=== PATIENT | female | born 1965 | race Hispanic/Latino ===

== ENCOUNTER 2017-10-12 16:38 | Inpatient (IN) | payer MEDICAID ==
[~2017-10-12] VITALS: Ht 160 cm; Wt 97.1 kg
[2017-10-12 17:27] LABS: BASOPHILS % (AUTO) 0.7 % (0.0-5.0); EOSINOPHILS % (AUTO) 3.5 % (0.0-8.0); HEMATOCRIT 40.1 % (36-48); LYMPHOCYTES % (AUTO) 33.3 % (21.0-51.0); MEAN CORPUSCULAR HEMOGLOBIN 28.7 pg (27.0-33.0); MEAN CORPUSCULAR HGB CONC 34.6 g/dL (32.0-36.0); MONOCYTES % (AUTO) 5.3 % (3.0-13.0); NEUTROPHILS % (AUTO) 57.2 % (40.0-77.0); NUCLEATED RED BLOOD CELLS 0.1 % (0.0-0.19); PLATELET COUNT (AUTO) 179 K/uL (130-400); RED BLOOD CELL COUNT(AUTO) 4.83 MIL/uL (4.00-5.50); RED CELL DISTRIBUTION WIDTH 14.1 % (11.0-15.5)
[2017-10-12 17:33] LABS: CARBON DIOXIDE 29 mmol/L (21-32); CHLORIDE 99 mmol/L (101-111); CREATININE 0.8 mg/dL (0.5-1.5); GLOMERULAR FILTR. RATE CALC 79 mL/min (>60); GLUCOSE,RANDOM 217 mg/dL (70-105); POTASSIUM 3.4 mmol/L (3.5-5.1); SODIUM SERUM 135 mmol/L (136-145); UREA NITROGEN, BLOOD 9 mg/dL (7-18)
[2017-10-12 17:44] LABS: CREATINE KINASE MB 0.7 ng/mL (0.5-3.6); CREATINE KINASE, TOTAL 158 U/L (21-232); MYOGLOBIN 36 ng/mL (10-92); TROPONIN I < 0.04 ng/mL (0.00-0.06)
[2017-10-12] MEDS ORDERED: INSU100I24 SQ (18:26)
[2017-10-12] MEDS ORDERED: NITR0.4T50 SL (18:26)
[2017-10-12] MEDS ORDERED: LEVO88TA7 PO (18:26)
[2017-10-12] MEDS ORDERED: ESCI10TA PO (18:26)
[2017-10-12] MEDS ORDERED: LOSA1TAB54 PO (18:26)
[2017-10-12 18:49] VITALS: BP 173/87
[2017-10-12 19:35] VITALS: BP 146/73
[2017-10-12 22:19] LABS: CREATINE KINASE MB 0.6 ng/mL (0.5-3.6); CREATINE KINASE, TOTAL 116 U/L (21-232); MYOGLOBIN 42 ng/mL (10-92); TROPONIN I < 0.04 ng/mL (0.00-0.06)
[2017-10-12] MEDS ORDERED: HYDRALAZINE HCL 20 MG/ML VIAL IV PRN (22:30)
[2017-10-12] MEDS: NITROGLYCERIN 1GM/1 INCH PACKET TD SCH (22:40)
[2017-10-12] MEDS: ACETAMINOPHEN 325 MG TAB PO PRN (22:42)
[2017-10-12 23:23] VITALS: BP 142/81
[2017-10-13] VITALS (13 sets, daily range): BP systolic 126–152; BP diastolic 63–89
[2017-10-13 02:04] LABS: CREATINE KINASE MB 0.5 ng/mL (0.5-3.6); CREATINE KINASE, TOTAL 116 U/L (21-232); MYOGLOBIN 36 ng/mL (10-92); THYROID STIMULATING HORMONE 13.57 uIU/mL (0.36-3.74); TROPONIN I < 0.04 ng/mL (0.00-0.06)
[2017-10-13] MEDS: INSULIN HUMULIN R 100 UNIT/ML 3ML SQ SCH ×4 (05:37→20:53)
[2017-10-13] MEDS: NITROGLYCERIN 1GM/1 INCH PACKET TD SCH ×3 (05:56→22:32)
[2017-10-13] MEDS: ACETAMINOPHEN 325 MG TAB PO PRN ×2 (07:37→20:56)
[2017-10-13] MEDS ORDERED: NITROGLYCERIN 5 MG/ML 10 ML VIAL IV ONE (08:00)
[2017-10-13] MEDS ORDERED: BIVALIRUDIN 250 MG/VIAL IV ONE (08:00)
[2017-10-13] MEDS ORDERED: MIDAZOLAM HCL 1 MG/ML 2ML VIAL ONE (08:01)
[2017-10-13] MEDS ORDERED: IOPAMIDOL-370 100 ML VIAL IV ONE (08:01)
[2017-10-13] MEDS ORDERED: MORPHINE SULFATE 4 MG/1ML SYG ONE (08:01)
[2017-10-13] MEDS ORDERED: LIDOCAINE HCL 2% 20ML ONE (08:01)
[2017-10-13] MEDS ORDERED: ISOVUE-370 50ML VIAL IV ONE (08:01)
[2017-10-13] MEDS ORDERED: NITROGLYCERIN 0.4 MG SL TAB SL PRN (08:15)
[2017-10-13] MEDS ORDERED: POTASSIUM CHLORIDE 10% ELIXIR 20 MEQ/15 ML UDCUP PO PRN (08:15)
[2017-10-13] MEDS ORDERED: MAG HYDROX/AL HYDROX/SIMETH ES 30 ML SUSP UDCUP PO PRN (08:15)
[2017-10-13] MEDS ORDERED: GUAIFENESIN-DM 200/20 MG 10 ML PO PRN (08:15)
[2017-10-13] MEDS ORDERED: POTASSIUM CHLORIDE 20MEQ/100ML 100 ML IV PRN (08:15)
[2017-10-13] MEDS ORDERED: INSULIN DEGLUDEC 20 UNIT SQ SCH (08:15)
[2017-10-13] MEDS ORDERED: LIDOCAINE HCL-MPF 1% 2ML VIAL IVP PRN (08:15)
[2017-10-13] MEDS ORDERED: LACTULOSE 20 GM/30 ML UDCUP PO PRN (08:15)
[2017-10-13] MEDS ORDERED: ONDANSETRON HCL 4 MG/2 ML VIAL IV PRN (08:15)
[2017-10-13] MEDS ORDERED: ACETAMINOPHEN-CODEINE 300/30MG TAB PO PRN (08:15)
[2017-10-13] MEDS ORDERED: ACETAMINOPHEN 325 MG TAB PO PRN (08:15)
[2017-10-13] MEDS ORDERED: HYDRALAZINE HCL 20 MG/ML VIAL IV PRN (08:15)
[2017-10-13] MEDS ORDERED: MORPHINE SULFATE 2 MG/ML 1ML SYG IV PRN (08:15)
[2017-10-13 08:20] LABS: INR 1.07 (0.85-1.15); PARTIAL THROMBOPLASTIN TIME 26.8 SEC (26.3-35.5); PROTHROMBIN TIME 11.2 SEC (9.6-11.6)
[2017-10-13] MEDS ORDERED: LABETALOL HCL 5 MG/ML 20ML VIAL IV ONE (08:39)
[2017-10-13] MEDS ORDERED: SODIUM CHLORIDE 0.9% 1000ML 1,000 ML IV SCH (08:53)
[2017-10-13] MEDS ORDERED: METOPROLOL TARTRATE 25 MG TAB PO SCH (09:00)
[2017-10-13] MEDS ORDERED: FAMOTIDINE 20MG TAB 20 MG TAB PO SCH (09:00)
[2017-10-13] MEDS: ASPIRIN 325MG EC TAB 325 MG TABLET.DR PO SCH (09:44)
[2017-10-13] MEDS: LOSARTAN/HYDROCHLOROTHIAZIDE 50-12.5MG TABLET PO SCH (09:44)
[2017-10-13] MEDS: FAMOTIDINE 20MG TAB 20 MG TAB PO SCH ×2 (09:44→20:46)
[2017-10-13] MEDS: CITALOPRAM 20 MG TABLET PO SCH (09:44)
[2017-10-13] MEDS: POTASSIUM CHLORIDE 20 MEQ ERTAB PO PRN (09:45)
[2017-10-13] MEDS ORDERED: INSULIN HUMULIN R 100 UNIT/ML 3ML SQ SCH (11:30)
[2017-10-13] MEDS ORDERED: ONDANSETRON HCL MDV 20ML 2 MG/ML VIAL ONE (14:52)
[2017-10-13] MEDS: INSULIN DEGLUDEC 20 UNIT SQ SCH (20:52)
[2017-10-14 03:38] VITALS: BP 135/78
[2017-10-14 04:29] LABS: MEAN CORPUSCULAR HEMOGLOBIN 28.7 pg (27.0-33.0); MEAN CORPUSCULAR HGB CONC 34.7 g/dL (32.0-36.0); MEAN CORPUSCULAR VOLUME 82.7 fL (79-99); NUCLEATED RED BLOOD CELLS 0.1 % (0.0-0.19); PLATELET COUNT (AUTO) 184 K/uL (130-400); RED BLOOD CELL COUNT(AUTO) 4.83 MIL/uL (4.00-5.50); RED CELL DISTRIBUTION WIDTH 14.3 % (11.0-15.5)
[2017-10-14 04:42] LABS: CREATININE 0.8 mg/dL (0.5-1.5); POTASSIUM 3.8 mmol/L (3.5-5.1)
[2017-10-14] MEDS: POTASSIUM CHLORIDE 20 MEQ ERTAB PO PRN (05:40)
[2017-10-14] MEDS: NITROGLYCERIN 1GM/1 INCH PACKET TD SCH ×3 (05:41→23:07)
[2017-10-14] MEDS: INSULIN HUMULIN R 100 UNIT/ML 3ML SQ SCH ×4 (06:08→21:06)
[2017-10-14 07:25] VITALS: BP 146/87
[2017-10-14] MEDS ORDERED: LEVOTHYROXINE 88 MCG TABLET PO SCH (07:30)
[2017-10-14] MEDS: FAMOTIDINE 20MG TAB 20 MG TAB PO SCH ×2 (08:56→21:02)
[2017-10-14] MEDS: CITALOPRAM 20 MG TABLET PO SCH (08:57)
[2017-10-14] MEDS: LOSARTAN/HYDROCHLOROTHIAZIDE 50-12.5MG TABLET PO SCH (08:57)
[2017-10-14] MEDS: ASPIRIN 325MG EC TAB 325 MG TABLET.DR PO SCH (08:57)
[2017-10-14] MEDS: INSULIN DEGLUDEC 20 UNIT SQ SCH ×2 (09:02→16:52)
[2017-10-14 11:35] VITALS: BP 129/90
[2017-10-14] MEDS ORDERED: ALBUTEROL SULFATE 0.083% 2.5 MG/3 ML INH IH ONE (15:42)
[2017-10-14 16:10] VITALS: BP 138/78
[2017-10-14] MEDS: ACETAMINOPHEN 325 MG TAB PO PRN (18:52)
[2017-10-14 19:55] VITALS: BP 134/76
[2017-10-15 00:29] VITALS: BP 122/69
[2017-10-15 05:01] VITALS: BP_SYST 101; BP_SYST 121; BP_DIAS 63; BP_DIAS 68
[2017-10-15] MEDS: NITROGLYCERIN 1GM/1 INCH PACKET TD SCH ×2 (05:50→14:02)
[2017-10-15] MEDS ORDERED: LEVOTHYROXINE 88 MCG TABLET PO SCH (06:30)
[2017-10-15] MEDS: INSULIN HUMULIN R 100 UNIT/ML 3ML SQ SCH ×2 (06:45→11:30)
[2017-10-15 07:32] VITALS: BP 139/87
[2017-10-15] MEDS: CITALOPRAM 20 MG TABLET PO SCH (08:07)
[2017-10-15] MEDS: ASPIRIN 325MG EC TAB 325 MG TABLET.DR PO SCH (08:07)
[2017-10-15] MEDS: FAMOTIDINE 20MG TAB 20 MG TAB PO SCH (08:07)
[2017-10-15] MEDS: LOSARTAN/HYDROCHLOROTHIAZIDE 50-12.5MG TABLET PO SCH (08:07)
[2017-10-15] MEDS: INSULIN DEGLUDEC 20 UNIT SQ SCH (08:10)
[2017-10-15 11:30] VITALS: BP 130/86
== END 2017-10-15 14:20 | disposition home or self-care (01) | DRG 192 ==
LOC: EDH 16:38 → EDHIP 16:39 → 2DH 17:46
PROVIDERS: ADMIT Family Medicine; ATTEND Family Medicine
PROC: B2151ZZ Fluoroscopy of Left Heart using Low Osmolar Contrast (ICD-10-PCS; principal; 2017-10-13)
PROC: 4A023N7 Measurement of Cardiac Sampling and Pressure, Left Heart, Percutaneous Approach (ICD-10-PCS; 2017-10-13)
PROC: B2111ZZ Fluoroscopy of Multiple Coronary Arteries using Low Osmolar Contrast (ICD-10-PCS; 2017-10-13)
DX: R07.9 Chest pain, unspecified (principal); E03.9 Hypothyroidism, unspecified; E11.9 Type 2 diabetes mellitus without complications; E78.5 Hyperlipidemia, unspecified; I10 Essential (primary) hypertension; E66.3 Overweight; F32.9 Major depressive disorder, single episode, unspecified; R00.1 Bradycardia, unspecified; I20.9 Angina pectoris, unspecified; Z86.711 Personal history of pulmonary embolism; Z82.49 Family history of ischemic heart disease and other diseases of the circulatory system
CPT/HCPCS: 36415; 71250; 80048; 80061; 82550; 82553; 82948; 83036; 83874; 83880; 84443; 84484; 85025; 85027; 85610; 85730; 93306; 93458; 94060; 94727; 94729; C1760; C1894; J0583; J1644; J1815; J2250; J2270; J3490; J7030; Q9967

== ENCOUNTER → 2018-03-18 | Outpatient (CLI) | payer MEDICAID ==
[~2018-03-18] MED LIST: ESCI10TA PO; INSU100I24 SQ; LEVO88TA7 PO; LOSA1TAB54 PO; NITR0.4T50 SL; OMEP-272 PO
== END | disposition home or self-care (01) ==
LOC: RAH 11:05
PROVIDERS: ATTEND Internal Medicine
DX: R10.10 Upper abdominal pain, unspecified (principal); R14.0 Abdominal distension (gaseous); K31.84 Gastroparesis; E11.9 Type 2 diabetes mellitus without complications; E78.5 Hyperlipidemia, unspecified; E03.9 Hypothyroidism, unspecified
CPT/HCPCS: 78264; A9541

== ENCOUNTER 2019-07-11 11:42 | Emergency (ER) | payer MEDICAID ==
[2019-07-11] MEDS ORDERED: ASPIRIN 325 MG TABLET ONE (12:00)
[2019-07-11 12:30] LABS: BASOPHILS % (AUTO) 0.6 % (0.0-5.0); EOSINOPHILS % (AUTO) 4.1 % (0.0-8.0); HEMATOCRIT 37.9 % (36-48); LYMPHOCYTES % (AUTO) 33.9 % (21.0-51.0); MEAN CORPUSCULAR HEMOGLOBIN 27.4 pg (27.0-33.0); MEAN CORPUSCULAR VOLUME 82.9 fL (79-99); MONOCYTES % (AUTO) 7.6 % (3.0-13.0); NEUTROPHILS % (AUTO) 53.6 % (40.0-77.0); PLATELET COUNT (AUTO) 104 K/uL (130-400); RED BLOOD CELL COUNT(AUTO) 4.57 MIL/uL (4.00-5.50); RED CELL DISTRIBUTION WIDTH 13.5 % (11.0-15.5); WHITE BLOOD COUNT (AUTO) 5.1 K/uL (4.8-10.8)
[2019-07-11] MEDS ORDERED: ONDANSETRON ODT 4 MG TAB ONE (12:44)
[2019-07-11 12:48] LABS: CREATININE 0.7 mg/dL (0.5-1.5); POTASSIUM 3.7 mmol/L (3.5-5.1)
[2019-07-11 12:49] LABS: INR 1.08 (0.85-1.15); PARTIAL THROMBOPLASTIN TIME 26.6 SEC (26.3-35.5); PROTHROMBIN TIME 11.3 SEC (9.6-11.6)
[2019-07-11 12:52] LABS: ALBUMIN 2.9 g/dL (3.5-5.0); BILIRUBIN,TOTAL 0.9 mg/dL (0.2-1.0); TOTAL PROTEIN, SERUM 7.2 g/dL (6.0-8.3)
[2019-07-11] MEDS ORDERED: SODIUM CHLORIDE 0.9% 1000ML 1,000 ML IV ONE (15:08)
== END 2019-07-11 17:44 | disposition home or self-care (01) ==
LOC: EDH 11:42
DX: E11.65 Type 2 diabetes mellitus with hyperglycemia (principal); R07.89 Other chest pain; R11.2 Nausea with vomiting, unspecified; M19.90 Unspecified osteoarthritis, unspecified site; I10 Essential (primary) hypertension; E07.9 Disorder of thyroid, unspecified
CPT/HCPCS: 36415; 71045; 80053; 82550; 82948; 84484; 85025; 85610; 85730; 93005; 96360; 99285; J7030

== ENCOUNTER → 2022-07-03 | Outpatient (CLI) | payer MEDICARE ==
[2022-07-03 13:14] LABS: RETICULOCYTE % (AUTO) 3.4 % (0.42-2.23)
[2022-07-03 13:44] LABS: % IRON SATURATION 27.3 % (22-44)
== END | disposition home or self-care (01) ==
LOC: LAB 09:53
PROVIDERS: ATTEND Internal Medicine Cardiovascular Disease
DX: R07.89 Other chest pain (principal); R06.00 Dyspnea, unspecified; R00.2 Palpitations; E11.9 Type 2 diabetes mellitus without complications
CPT/HCPCS: 36415; 82728; 83540; 83550; 83883; 84165; 85045

== ENCOUNTER 2023-06-11 15:39 | Emergency (ER) | payer MEDICARE ==
[~2023-06-11] VITALS: Ht 160 cm; Wt 83.9 kg
[2023-06-11] MEDS ORDERED: MORPHINE 4 MG SYG IM ONE (16:30)
[2023-06-11] MEDS ORDERED: ONDANSETRON ODT 4MG TAB SL ONE (16:30)
[2023-06-11 18:11] LABS: APPEARANCE,URINE CLEAR (CLEAR); BILIRUBIN,URINE NEGATIVE (NEGATIVE); COLOR,URINE LIGHT-YELLOW (YELLOW); GLUCOSE, URINE (UA) >=1000 mg/dL (NEGATIVE); KETONES,URINE NEGATIVE (NEGATIVE); LEUKOCYTE ESTERASE ,URINE 75 Leu/uL (NEGATIVE); NITRATE,URINE NEGATIVE (NEGATIVE); OCCULT BLOOD,URINE NEGATIVE (NEGATIVE); PROTEIN,URINE NEGATIVE (NEGATIVE); UROBILINOGEN,URINE 0.2 mg/dL (0.2-1.0)
[2023-06-11 18:13] LABS: ADD UA MICROSCOPIC YES
[2023-06-11 18:15] LABS: BACTERIA,URINE RARE /HPF (None Seen); RBC,URINE 0-1 /HPF (0-1); SQUAMOUS EPITHELIAL CELL,UR FEW /HPF (0-2)
[2023-06-11] MEDS ORDERED: CYCL5TAB PO (18:54)
[2023-06-11] MEDS ORDERED: IBUP-2070 PO (18:54)
[2023-06-11] MEDS ORDERED: CEFTRIAXONE 1G VIAL IVPB ONE (19:00)
[2023-06-11] MEDS ORDERED: HYDROCODONE/ACETAMINOPHEN 5/325 MG TAB PO ONE (22:30)
[2023-06-11 22:47] VITALS: BP 132/75; PULSE 75; RESP 16; O2SAT 97
[2023-06-11] MEDS ORDERED: MORPHINE 4 MG SYG IVP ONE (23:00)
== END 2023-06-11 23:07 | disposition home or self-care (01) ==
LOC: EDH 15:39
DX: S32.028A Other fracture of second lumbar vertebra, initial encounter for closed fracture (principal); E11.65 Type 2 diabetes mellitus with hyperglycemia; I10 Essential (primary) hypertension; F32.A Depression, unspecified; E03.9 Hypothyroidism, unspecified; Z79.899 Other long term (current) drug therapy; Z98.890 Other specified postprocedural states; X58.XXXA Exposure to other specified factors, initial encounter; Y93.89 Activity, other specified; Y92.89 Other specified places as the place of occurrence of the external cause; Y99.8 Other external cause status
CPT/HCPCS: 99285; 72131; 96374; 96375; 87088; 82948; 81001; 72192; 96372; J0696; J2270 ×2

== ENCOUNTER 2023-09-01 16:20 | Emergency (ER) | payer MEDICARE ==
[~2023-09-01] VITALS: Ht 160 cm; Wt 83.0 kg
[~2023-09-01 16:20] MED LIST changes: +CYCL5TAB PO; +IBUP-2070 PO
[2023-09-01 17:23] LABS: BASOPHILS # (AUTO) 0.05 K/uL (0.00-0.20); BASOPHILS % (AUTO) 0.7 % (0.0-5.0); EOSINOPHILS # (AUTO) 0.19 K/uL (0.00-0.70); EOSINOPHILS % (AUTO) 2.5 % (0.0-8.0); IMMATURE GRANULOCYTE ABSOLUTE 0.02 K/uL (0-1); LYMPHOCYTES # (AUTO) 1.7 K/uL (1.0-4.8); LYMPHOCYTES % (AUTO) 22.5 % (21.0-51.0); MEAN CORPUSCULAR HEMOGLOBIN 28.9 pg (27.0-33.0); MEAN CORPUSCULAR HGB CONC 34.3 g/dL (32.0-36.0); MEAN CORPUSCULAR VOLUME 84.2 fL (79-99); MONOCYTES # (AUTO) 0.6 K/uL (0.1-1.0); MONOCYTES % (AUTO) 8.1 % (3.0-13.0); NEUTROPHILS % (AUTO) 65.9 % (40.0-77.0); PLATELET COUNT (AUTO) 96 K/uL (130-400); RED BLOOD CELL COUNT(AUTO) 4.99 MIL/uL (4.00-5.50); RED CELL DISTRIBUTION WIDTH 14.1 % (11.0-15.5); WHITE BLOOD COUNT (AUTO) 7.5 K/uL (4.8-10.8)
[2023-09-01 17:37] LABS: CREATININE 0.6 mg/dL (0.5-1.5); POTASSIUM 3.8 mmol/L (3.5-5.1)
[2023-09-01 17:42] LABS: BILIRUBIN,TOTAL 3.2 mg/dL (0.2-1.0); TOTAL PROTEIN, SERUM 6.8 g/dL (6.0-8.3)
[2023-09-01] MEDS ORDERED: TRAM25TA PO (20:44)
[2023-09-01] MEDS ORDERED: ONDA22I PO (20:44)
[2023-09-01] MEDS ORDERED: ONDANSETRON 4MG TABLET PO ONE (21:00)
[2023-09-01] MEDS: ONDANSETRON 4MG INJ IVP ONE (21:03)
[2023-09-01] MEDS: TRAMADOL HCL 50 MG TABLET PO ONE (21:03)
[2023-09-01] MEDS: 0.9%NACL 1000ML 1,000 ML IV ONE (21:04)
[2023-09-01 22:04] VITALS: BP 157/74; PULSE 74; RESP 19; O2SAT 98
== END 2023-09-01 22:12 | disposition home or self-care (01) ==
LOC: EDH 16:20
DX: K74.60 Unspecified cirrhosis of liver (principal); R18.8 Other ascites; D69.6 Thrombocytopenia, unspecified; E11.65 Type 2 diabetes mellitus with hyperglycemia; E88.09 Other disorders of plasma-protein metabolism, not elsewhere classified; E11.43 Type 2 diabetes mellitus with diabetic autonomic (poly)neuropathy; E03.9 Hypothyroidism, unspecified; F32.A Depression, unspecified; I10 Essential (primary) hypertension; K31.84 Gastroparesis; Z79.899 Other long term (current) drug therapy; Z90.49 Acquired absence of other specified parts of digestive tract; Z98.890 Other specified postprocedural states
CPT/HCPCS: 99285; 74176; 96374; 71045; 96361; 84484; 80053; 83690; 85025; 36415; 93005; J7030; J2405

== ENCOUNTER → 2024-01-12 | Outpatient (CLI) | payer MEDICARE ==
[~2024-01-12] MED LIST changes: +ONDA22I PO; +TRAM25TA PO
[2024-01-12 11:04] LABS: BASOPHILS # (AUTO) 0.04 K/uL (0.00-0.20); BASOPHILS % (AUTO) 0.9 % (0.0-5.0); EOSINOPHILS % (AUTO) 8.9 % (0.0-8.0); HEMATOCRIT 38.9 % (36-48); IMMATURE GRANULOCYTE ABSOLUTE 0.01 K/uL (0-1); LYMPHOCYTES # (AUTO) 1.2 K/uL (1.0-4.8); LYMPHOCYTES % (AUTO) 26.8 % (21.0-51.0); MEAN CORPUSCULAR HEMOGLOBIN 29.3 pg (27.0-33.0); MEAN CORPUSCULAR HGB CONC 34.2 g/dL (32.0-36.0); MEAN CORPUSCULAR VOLUME 85.7 fL (79-99); MONOCYTES # (AUTO) 0.4 K/uL (0.1-1.0); MONOCYTES % (AUTO) 8.7 % (3.0-13.0); NEUTROPHILS # (AUTO) 2.4 K/uL (1.8-7.7); NEUTROPHILS % (AUTO) 54.5 % (40.0-77.0); PLATELET COUNT (AUTO) 86 K/uL (130-400); RED BLOOD CELL COUNT(AUTO) 4.54 MIL/uL (4.00-5.50); RED CELL DISTRIBUTION WIDTH 14.3 % (11.0-15.5); WHITE BLOOD COUNT (AUTO) 4.5 K/uL (4.8-10.8)
[2024-01-12 11:10] LABS: INR 1.22 (0.85-1.15)
[2024-01-12 11:11] LABS: PARTIAL THROMBOPLASTIN TIME 28.4 SEC (26.3-35.5)
[2024-01-12 11:33] LABS: ALBUMIN 3.1 g/dL (3.5-5.0); BILIRUBIN,TOTAL 1.8 mg/dL (0.2-1.0); CREATININE 0.7 mg/dL (0.5-1.0); POTASSIUM 4.5 mmol/L (3.5-5.1)
== END | disposition home or self-care (01) ==
LOC: RAH 09:48
PROVIDERS: ATTEND Internal Medicine Gastroenterology
DX: R18.8 Other ascites (principal); K74.60 Unspecified cirrhosis of liver; I85.10 Secondary esophageal varices without bleeding; K31.84 Gastroparesis; K21.9 Gastro-esophageal reflux disease without esophagitis; K58.1 Irritable bowel syndrome with constipation; K57.30 Diverticulosis of large intestine without perforation or abscess without bleeding; E11.9 Type 2 diabetes mellitus without complications; I10 Essential (primary) hypertension
CPT/HCPCS: 36415; 76705; 80053; 85025; 85610; 85730

== ENCOUNTER → 2024-06-03 | Outpatient (CLI) | payer MEDICARE ==
[~2024-06-03] MED LIST changes: -CYCL5TAB PO; +CYCL5TAB3 PO
--- NOTE | 2024-06-03 10:26 | HMCIMG ---
US ABDOMINAL COMPLETE HISTORY: Liver cirrhosis COMPARISON: None TECHNIQUE: Multiple transverse and longitudinal ultrasound images of the abdomen were obtained. FINDINGS: Liver measured 13.6 cm. The visualized portion of the pancreas is within normal limits. Liver is echogenic consistent with liver parenchymal disease. Gallbladder has been removed. Common duct measures 6 mm. Study is limited due to overlying bowel gas. Both kidneys are seen. Right kidney measures 10.8 x 4.4 x 4.7 cm. Left kidney measures 11.5 x 4.2 x 5.6 cm. No hydronephrosis is seen of the both kidneys. Spleen measures 14.4 cm. The study is limited due to overlying bowel gas. The spleen is grossly unremarkable. IMPRESSION: 1. Gallbladder has been removed. No ductal dilatation is seen. Liver parenchymal disease with enlarged spleen. 2. No hydronephrosis is seen.
== END | disposition home or self-care (01) ==
LOC: RAH 07:26
PROVIDERS: ATTEND Internal Medicine Gastroenterology
DX: K74.60 Unspecified cirrhosis of liver (principal); R18.8 Other ascites; R16.1 Splenomegaly, not elsewhere classified; K74.00 Hepatic fibrosis, unspecified; Z90.49 Acquired absence of other specified parts of digestive tract
CPT/HCPCS: 76700

== ENCOUNTER 2024-06-10 15:06 | Emergency (ER) | payer MEDICARE ==
[~2024-06-10] VITALS: Ht 160 cm; Wt 84.8 kg
[2024-06-10 15:10] VITALS: BP 166/85; PULSE 74; RESP 20; TEMP 99
[2024-06-10 15:40] LABS: BASOPHILS # (AUTO) 0.04 K/uL (0.00-0.20); BASOPHILS % (AUTO) 0.8 % (0.0-5.0); EOSINOPHILS # (AUTO) 0.21 K/uL (0.00-0.70); EOSINOPHILS % (AUTO) 4.2 % (0.0-8.0); HEMATOCRIT 38.2 % (36-48); IMMATURE GRANULOCYTE ABSOLUTE 0.01 K/uL (0-1); MEAN CORPUSCULAR HEMOGLOBIN 29.5 pg (27.0-33.0); MEAN CORPUSCULAR HGB CONC 34.6 g/dL (32.0-36.0); MEAN CORPUSCULAR VOLUME 85.3 fL (79-99); MONOCYTES # (AUTO) 0.5 K/uL (0.1-1.0); MONOCYTES % (AUTO) 8.9 % (3.0-13.0); NEUTROPHILS # (AUTO) 3.3 K/uL (1.8-7.7); NEUTROPHILS % (AUTO) 65.9 % (40.0-77.0); PLATELET COUNT (AUTO) 78 K/uL (130-400); RED BLOOD CELL COUNT(AUTO) 4.48 MIL/uL (4.00-5.50); RED CELL DISTRIBUTION WIDTH 13.7 % (11.0-15.5); WHITE BLOOD COUNT (AUTO) 5.1 K/uL (4.8-10.8)
[2024-06-10 16:05] LABS: B-TYPE NATRIURETIC PEPTIDE 22 pg/mL (0-100)
--- NOTE | 2024-06-10 16:13 | HMCIMG ---
CHEST 1VW REASON: CHEST PAIN COMPARISON: 09/01/2023 FINDINGS: Single view of the chest was obtained. Lungs are clear. Heart size is normal. There is no pulmonary vascular congestion. Mediastinum and bony thorax appear unremarkable. IMPRESSION: 1. Normal single view chest x-ray.
[2024-06-10 16:14] LABS: CREATININE 0.8 mg/dL (0.5-1.0); POTASSIUM 4.3 mmol/L (3.5-5.1)
--- NOTE | 2024-06-10 16:22 | ERN ---
ED Note History of Present Illness Stated Complaint: CP Chief Complaint: Chest Pain Time Seen by MD: 15:50 Dictation: PATIENT IS A 59-YEAR-OLD FEMALE COMING IN HERE FROM [facility] WITH COMPLAINTS OF CHEST PAIN PRESSURE AND SHORTNESS A BREATH ONSET WAS 30 MIN UTES PRIOR TO ARRIVAL WE WILL WHILE IN THE DOCTOR'S OFFICE. SHE STATES SHE HAD HAD NAUSEA VOMITING IN THE DOCTOR'S OFFICE WHEN SHE FELT THE PRESSURE WHICH ONLY LASTED SEVERAL SECONDS AND THEN RESOLVED. AND SHE TOLD THE NURSE SHE WANTED TO GO TO THE HOSPITAL. SHE STATES THEY OFFERED HAVE HER TRANSPORTED VIA EMS HOWEVER SHE REFUSED AND DROVE HERSELF TO THE EMERGENCY ROOM. SHE IS CURRENTLY SHE DOES NOT HAVE ANY CHEST PAIN OR PRESSURE STILL FEELS MILDLY SHORT OF BREATH. DOES HAVE A HISTORY OF CAD AND HAS A PRIOR MYOCARDIAL INFARCTION FIVE YEARS AGO, PATIENT OF DR. [facility]'S Allergies: Coded Allergies: No Known Drug Allergies (Unverified Allergy, Unknown, 10/12/17) Home Meds Active Scripts Tramadol HCl (Tramadol HCl) 25 Mg Tablet, 25 MG PO TID PRN for PAIN LEVEL 4 TO 6, #9 TAB Prov:NANO MAY Jr. SATELLITE TELEVISION INSTALLER 09/01/23 Ondansetron HCl (Zofran) 4 Mg/2 Ml Inj, 4 MG PO Q6HPRN PRN for VOMITING, #20 ML Prov:NANO MAY Jr. SATELLITE TELEVISION INSTALLER 09/01/23 Ibuprofen (Ibuprofen) 600 Mg Tablet, 600 MG PO Q6H PRN for PAIN, #15 TAB 0 Refills Prov:KATJA BANKS NP 06/11/23 Cyclobenzaprine HCl (Cyclobenzaprine HCl) 5 Mg Tablet, 5 MG PO [id number], #15 TAB 0 Refills Prov:KATJA BANKS NP 06/11/23 Reported Medications Omeprazole Magnesium (Omeprazole Magnesium) 20 Mg Capsule.dr, 20 MG PO DAILY, CAP 01/05/18 Insulin Degludec (Tresiba Flextouch U-100) 100 Unit/1 Ml Insuln.pen, 70 UNITS SQ BIDMEALS, SYRINGE 10/12/17 Losartan/Hydrochlorothiazide (Losartan-Hctz 100-25 mg Tab) 1 Each Tablet, 1 EACH PO DAILY, TAB 10/12/17 Escitalopram Oxalate (Lexapro) 10 Mg Tablet, 10 MG PO DAILY, TAB 10/12/17 Nitroglycerin (Nitroglycerin) 0.4 Mg Tab.subl, 0.4 MG SL AD PRN for CHEST PAIN, TAB.SL 10/12/17 Levothyroxine Sodium (Levothyroxine Sodium) 88 Mcg Tablet, 88 MCG PO ACBKFST, TAB 10/12/17 Past Medical History Past Medical History: Diabetes-Type II, GERD, Hypertension, Hypothyroid, Liver Disease Additional Past Medical Hx: THYROID Surgical History: Cholecystectomy Family History: DM, HTN Social History: Negative, Lives with family History: Not Applicable RN Note Reviewed/Agreed w/PFSH: Yes Review of System Dictation CONSTITUTIONAL: NEGATIVE EXCEPT FOR HPI HEAD/FACE: NEGATIVE EXCEPT FOR HPI EENT: NEGATIVE EXCEPT FOR HPI RESPIRATORY: NEGATIVE EXCEPT FOR HPI CHEST PRESSURE/SOB GASTROINTESTINAL/ABDOMINAL: NEGATIVE EXCEPT FOR HPI GENITOURINARY: NEGATIVE EXCEPT FOR HPI MUSCULOSKELETAL: NEGATIVE EXCEPT FOR HPI INTEGUMENTARY: NEGATIVE EXCEPT FOR HPI NEUROLOGICAL/PSYCH: NEGATIVE EXCEPT FOR HPI HEMATOLOGIC/LYMPHATIC: NEGATIVE EXCEPT FOR HPI ALL SYSTEMS NEGATIVE, EXCEPT NOTED ABOVE. 13 POINT REVIEW OF SYSTEMS ASSESSED AND ALL NEGATIVE EXCEPT FOR ABOVE. Initial Vital Sign VS Vital Signs Date Time Temp Pulse Resp B/P (MAP) Pulse Ox O2 Delivery O2 Flow Rate FiO2 06/10/24 15:10 99.0 74 20 166/85 99 0 Physical Exam Dictation VITAL SIGNS REVIEWED GENERAL APPEARANCE: ALERT, ORIENTED X 3, MILD ACUTE DISTRESS, WELL DEVELOPED, NOURISHED. SHE STATES NO PAIN OR PRESSURE AT THIS TIME. HEAD AND FACE: NON-TRAUMATIC. EYES: PERRL, PINK CONJUNCTIVAS, EYELID NO TRAUMA, ANTERIOR CHAMBER WITH ARCUS SENILIS. EARS: PINNAS INTACT AND NO SIGNS OF TRAUMA OR ERYTHEMA EAR CANALS CLEAR AND NO DISCHARGE TM NO ERYTHEMA NOSE: NO DISCHARGE, NO BLEEDING. OROPHARYNX: MOUTH NORMAL, TONGUE PINK, PHARYNX CLEAR,NO ERYTHEMA, TONSILS NO EXUDATES, NO ABSCESSES NOTED, MUCOUS MEMBRANE MOIST NECK: SUPPLE, NON-TENDER, NO THYROMEGALY, NO MASSES, NO JVD, NO BRUITS BREAST:DEFERRED CHEST:NO TENDERNESS, NO CREPITUS, NO PARADOXICAL MOVEMENT, NO RETRACTIONS LUNGS:CLEAR, WELL-VENTILATED, SYMMETRIC, NO RALES, NO WHEEZING, NO RHONCHI, NO STRIDOR, GOOD BREATH SOUNDS BILATERALLY SOB WITH THE EXERTION HEART: REGULAR RATE, REGULAR RHYTHM, NO MURMUR, NO GALLOPS VASCULAR: NO PERIPHERAL EDEMA, ABDOMEN: SOFT, POSITIVE BOWEL SOUNDS, NONDISTENDED, NO GUARDING, NONTENDER, NO REBOUND, NO MASSES NO HEPATOMEGALY, NO SPLENOMEGALY, NO ESTRELLA'S SIGN, NO HERNIAS. RECTAL: DEFERRED GENITAL: DEFERRED NEUROLOGICAL: NORMAL SPEECH, MOTOR FUNCTION INTACT, SENSORY FUNCTION INTACT MUSCULOSKELETAL: NECK NONTENDER, FULL RANGE OF MOTION, BACK NONTENDER, FULL RANGE OF MOTION, EXTREMITIES: NONTENDER, FULL RANGE OF MOTION SKIN: COLOR PINK, DRY, NO TURGOR, NO RASH, NO LACERATIONS, NO ABRASIONS, NO CONTUSIONS. LYMPHATIC: DEFERRED Results (Laboratory/Radiology) Laboratory/Radiology Laboratory Tests Test 06/10/24 15:28 White Blood Count 5.1 K/uL (4.8-10.8) Red Blood Count 4.48 MIL/uL (4.00-5.50) Hemoglobin 13.2 g/dL (12.0-16.0) Hematocrit 38.2 % (36-48) Mean Corpuscular Volume 85.3 fL (79-99) Mean Corpuscular Hemoglobin 29.5 pg (27.0-33.0) Mean Corpuscular Hemoglobin Concent 34.6 g/dL (32.0-36.0) Red Cell Distribution Width 13.7 % (11.0-15.5) Platelet Count 78 K/uL (130-400) L Mean Platelet Volume 10.7 fL (7.5-10.5) H Immature Granulocyte % (Auto) 0.2 % (0-1) Neutrophils (%) (Auto) 65.9 % (40.0-77.0) Lymphocytes (%) (Auto) 20.0 % (21.0-51.0) L Monocytes (%) (Auto) 8.9 % (3.0-13.0) Eosinophils (%) (Auto) 4.2 % (0.0-8.0) Basophils (%) (Auto) 0.8 % (0.0-5.0) Neutrophils # (Auto) 3.3 K/uL (1.8-7.7) Lymphocytes # (Auto) 1.0 K/uL (1.0-4.8) Monocytes # (Auto) 0.5 K/uL (0.1-1.0) Eosinophils # (Auto) 0.21 K/uL (0.00-0.70) Basophils # (Auto) 0.04 K/uL (0.00-0.20) Absolute Immature Granulocyte (auto 0.01 K/uL (0-1) Nucleated Red Blood Cells 0.0 % (0.0-0.19) Sodium Level 142 mmol/L (136-145) Potassium Level 4.3 mmol/L (3.5-5.1) Chloride Level 107 mmol/L (101-111) Carbon Dioxide Level 29 mmol/L (21-32) Blood Urea Nitrogen 11 mg/dL (7-18) Creatinine 0.8 mg/dL (0.5-1.0) Glomerular Filtration Rate Calc 84 mL/min (>90) Random Glucose 172 mg/dL (70-105) H Total Calcium 8.9 mg/dL (8.5-10.1) Total Creatine Kinase 88 U/L (21-232) B-Type Natriuretic Peptide 22 pg/mL (0-100) Labs Reviewed?: Yes EKG Comment: EKG IS SINUS RHYTHM/HEART RATE 73/OLD CHANGES TO LEADS TWO AND THREE. NO CHANGE COMPARED WITH HER EKG DATED 09/01/2023. ED Course ED Course Orders Procedure Category Date Status Time Vital Signs Per CPOE 06/10/24 Transmitted Routine 15:09 B-Type Natriuretic LAB 06/10/24 Complete Peptide 15:09 Chest 1vw RAD 06/10/24 Resulted 15:09 12 Lead Ekg Tracing- EKG 06/10/24 Complete Technical 15:09 Oxygen By Nc/Pulse Ox CPOE 06/10/24 Transmitted 15:09 Maintain Iv CPOE 06/10/24 Transmitted 15:09 Iv Insertion CPOE 06/10/24 Transmitted 15:09 Cardiac Monitoring CPOE 06/10/24 Transmitted 15:09 Pulse Oximetry With CPOE 06/10/24 Transmitted Vs And Prn 15:09 Cbc With Differential LAB 06/10/24 Complete 15:09 Activity: Br W/Brp CPOE 06/10/24 Transmitted With Assist 15:09 Creatine Kinase, Total LAB 06/10/24 Complete 15:09 Troponin Poc Order LAB 06/10/24 Complete Only 15:09 Bedside Troponin-I LAB.ER 06/10/24 Complete (Poc) 15:09 Basic Metabolic Panel LAB 06/10/24 Complete 15:09 Vital Signs Date Time Temp Pulse Resp B/P (MAP) Pulse Ox O2 Delivery O2 Flow Rate FiO2 06/10/24 15:10 99.0 74 20 166/85 99 0 1999/PATIENT WAS CALLED IN THE WAITING ROOM X2 WITH NO RESPONSE FOR 2ND EKG AND TROPONIN. Medical Decision Making MDM MEDICAL DECISION-MAKING WAS BASED ON RULE OUT FOR ACUTE CHEST PAIN 1999/PATIENT UNAVAILABLE IN WAITING ROOM FOR 2ND EKG AND TROPONIN. DISCHARGED AGAINST MEDICAL ADVICE DX & DISP Disposition: AMA Departure Impression: Primary Impression: Acute chest pain Additional Impression: Uncontrolled diabetes mellitus Condition: Stable Referrals: BOBBI GRAY (PCP) Time of Disposition: 20:01 I have reviewed the case, and I agree with, Diagnosis and Plan TEQUILA STEELE NP Jun 10, 2024 16:22 TRISHA CABRERA DO Jun 11, 2024 07:39
--- NOTE | 2024-06-10 19:35 | NUR ---
NO ANSWER IN LOBBY
--- NOTE | 2024-06-10 19:50 | NUR ---
CALLED IN LOBBY NO ANSWER
--- NOTE | 2024-06-10 20:00 | NUR ---
CALLED IN LOBBY NO ANSWER
--- NOTE | 2024-06-11 07:12 | EKG ---
[facility] Test Date: 2024-06-10 Test Time: 15:09:51 Pat Name: OANH THOMAS Department: ED Room: Gender: F Sample Wrapper: [id number] Requested By: TRISHA CABRERA Order Number: [id number] Reading MD: Flores Mack Measurements Intervals [place] Rate: 73 P: 0 NV: 79 QRS: -22 QRSD: 105 T: 41 QT: 443 QTc: 490 Interpretive Statements Sinus rhythm Supraventricular bigeminy Inferior infarct, old Compared to ECG 09/01/2023 16:50:54 Atrial premature complex(es) now present Myocardial infarct finding still present Electronically Signed On 06-11-2024 16:20:20 PROJECT PRODUCT MANAGER by Flores Mack Please click the below link to view image of tracing.
== END 2024-06-10 20:01 | disposition left against medical advice (07) ==
LOC: EDH 15:06
DX: R07.89 Other chest pain (principal); E11.65 Type 2 diabetes mellitus with hyperglycemia; E03.9 Hypothyroidism, unspecified; I10 Essential (primary) hypertension; I21.9 Acute myocardial infarction, unspecified; K21.9 Gastro-esophageal reflux disease without esophagitis; Z79.899 Other long term (current) drug therapy; Z90.49 Acquired absence of other specified parts of digestive tract
CPT/HCPCS: 36415; 71045; 80048; 82550; 83880; 84484; 85025; 93005; 99285

== ENCOUNTER → 2025-06-27 | Outpatient (CLI) | payer MEDICARE ==
[~2025-06-27] MED LIST changes: +IBUP-1492 PO; -IBUP-2070 PO
[2025-06-27 08:00] LABS: INR 1.24 (0.85-1.15)
[2025-06-27 08:19] LABS: GAMMA GLUTAMYL TRANSFERASE 31.0 U/L (5-85); LDL DIRECT 56.0 mg/dL (0-99)
--- NOTE | 2025-06-28 06:32 | HMCIMG ---
EXAMINATION: ULTRASOUND OF THE ABDOMEN WITH COLOR DOPPLER. CLINICAL HISTORY: Cirrhosis. COMPARISON: Ultrasound of the abdomen dated 12/02/2024. TECHNIQUE: Real-time grayscale ultrasound images of the abdomen. In addition, color Doppler is medically necessary to perform in order to evaluate vascularity and blood flow. FINDINGS: Liver: Normal in caliber, the right hepatic lobe measures 12.0 cm in the craniocaudal dimension. There is coarse echotexture of the hepatic parenchyma with lobulated contour. There is no focal hepatic abnormality or intrahepatic biliary ductal dilatation. There is normal spectral Doppler of the main portal vein. Gallbladder: Post cholecystectomy status. Common bile duct is normal in caliber, measuring 0.7 cm. Spleen is bulky in caliber and measures 15.8 x 4.9 x 5.8 cm in craniocaudal, AP and transverse dimensions respectively. No focal lesions. Pancreas: Normal in caliber and echotexture. No calcification or dilated pancreatic duct. The Right kidney is relatively smaller and the left kidney is normal in caliber, the right kidney measures 8.2 x 4.3 x 3.0 cm and the left kidney measures 10.5 x 5.0 x 4.3 cm in craniocaudal, AP, and transverse dimensions respectively. There is normal renal cortical thickness, and cortical echogenicity. There is no renal calculus or hydronephrosis. Visualized aspects of the abdominal aorta and inferior vena cava are unremarkable. IMPRESSION: Chronic hepatic disease. Post cholecystectomy status. Splenomegaly. Relatively smaller right kidney. /[facility]
== END | disposition home or self-care (01) ==
LOC: RAH 07:02
PROVIDERS: ATTEND Internal Medicine Gastroenterology
DX: K74.69 Other cirrhosis of liver (principal); R16.1 Splenomegaly, not elsewhere classified; E11.69 Type 2 diabetes mellitus with other specified complication; E66.811 Obesity, class 1; E66.9 Obesity, unspecified; Z68.33 Body mass index [BMI] 33.0-33.9, adult; D69.6 Thrombocytopenia, unspecified; R18.8 Other ascites; K74.00 Hepatic fibrosis, unspecified; K74.60 Unspecified cirrhosis of liver; Z90.49 Acquired absence of other specified parts of digestive tract
CPT/HCPCS: 36415; 76700; 80061; 82247; 82248; 82306; 82977; 83036; 85610